=== PATIENT | female | born 1945 | race Caucasian/White ===

== ENCOUNTER 2020-05-07 06:23 | Day surgery (SDC) | payer MEDICARE ==
[2020-05-07] MEDS ORDERED: Sodium Chloride 0.9% 10 ML Syringe FLUSH PRN (07:00)
[2020-05-07 08:08] VITALS: BP 165/96; PULSE 70
--- NOTE | 2020-05-07 09:31 | OR ---
DATE OF PROCEDURE: 05/07/2020 SURGEON: Casie Zepeda MD POSTOPERATIVE CARE: Postoperative care will be provided mainly at the [address] [place] [address] [facility] in conjunction with [facility]. PREOPERATIVE DIAGNOSIS: Cataract, right eye. POSTOPERATIVE DIAGNOSIS: Cataract, right eye. PROCEDURE: Phacoemulsification with intraocular lens placement, right eye. ANESTHESIA: Topical and intracameral. ESTIMATED BLOOD LOSS: Minimal. COMPLICATIONS: None. PATHOLOGY SPECIMENS: None. SURGICAL FINDINGS: None. INDICATION FOR PROCEDURE: The patient is a 74-year-old female with history of a visually significant cataract in the right eye, which interfered with activities of daily living. This consisted of a nuclear sclerosis cataract. Following careful discussion of the risks, benefits and alternatives to cataract extraction with intraocular lens placement including blindness and , the patient elected to proceed, and informed, written consent was obtained prior to the procedure. DESCRIPTION OF THE PROCEDURE: The patient was previously identified, and a oscar placed above the right eye. All sources, including the patient, indicated that the right eye was the correct eye. The patient was subsequently taken to the operating room where standard monitors were applied. The patient was then prepped and draped in the usual sterile fashion for ophthalmic surgery. Attention was first directed at the 12 o'clock position where a paracentesis port was fashioned. Shugar solution followed by Viscoat was instilled into the eye. Attention was then directed to the 8:30 position where a triplanar incision was made in a near-clear manner using a keratome. A continuous capsulorrhexis was then made using a combination of the cystotome and Utrata forceps. Hydrodissection was achieved using a balanced salt solution, and the lens rotated nicely. Phacoemulsification was then done using a modified botrbx-xix-bdbhdoh technique without complication. Phaco time was 10.11 CDE. The remaining cortex was removed using the irrigation/aspiration handpiece. Provisc was then instilled into the eye. A Technis lens, model DCB00, at 23.0 diopters was then placed in the capsular bag using an [place] injector. The remaining viscoelastic was removed using the irrigation/aspiration forceps. All wounds were then checked and found to be watertight. The lid speculum and drapes were removed. Maxitrol ointment was placed in the patient's right eye, and the eye was shielded. The patient tolerated the procedure well. The patient was instructed to follow up tomorrow. All needle and sponge counts were correct at the end of the procedure. Casie Zepeda MD /[id number]
== END 2020-05-07 08:31 | disposition home or self-care (01) ==
LOC: JP.SDS 06:23
PROVIDERS: ATTEND Ophthalmology
DX: H25.11 Age-related nuclear cataract, right eye (principal); I10 Essential (primary) hypertension; Z91.040 Latex allergy status
CPT/HCPCS: 66984; V2632

== ENCOUNTER 2020-05-21 06:47 | Day surgery (SDC) | payer MEDICARE ==
[2020-05-21] MEDS: Sodium Chloride 0.9% 10 ML Syringe FLUSH PRN (07:22)
[2020-05-21 10:14] VITALS: BP 156/80; PULSE 72
--- NOTE | 2020-05-21 14:39 | OR ---
DATE OF PROCEDURE: 05/21/2020 SURGEON: Casie Zepeda MD POSTOPERATIVE CARE: Postoperative care will be provided mainly at the [address] [place] [address] [facility] in conjunction with [facility]. PREOPERATIVE DIAGNOSIS: Cataract, left eye. POSTOPERATIVE DIAGNOSIS: Cataract, left eye. PROCEDURE: Phacoemulsification with intraocular lens placement, left eye. ANESTHESIA: Topical and intracameral. ESTIMATED BLOOD LOSS: Minimal. COMPLICATIONS: None. PATHOLOGY SPECIMENS: None. SURGICAL FINDINGS: None. INDICATION FOR PROCEDURE: The patient is a 74-year-old female with history of a visually significant cataract in the left eye, which interfered with activities of daily living. This consisted of a nuclear sclerosis cataract. Following careful discussion of the risks, benefits and alternatives to cataract extraction with intraocular lens placement including blindness and , the patient elected to proceed, and informed, written consent was obtained prior to the procedure. DESCRIPTION OF THE PROCEDURE: The patient was previously identified, and a oscar placed above the left eye. All sources, including the patient, indicated that the left eye was the correct eye. The patient was subsequently taken to the operating room where standard monitors were applied. The patient was then prepped and draped in the usual sterile fashion for ophthalmic surgery. Attention was first directed at the 12 o'clock position where a paracentesis port was fashioned. Shugar solution followed by Viscoat was instilled into the eye. Attention was then directed to the 8:30 position where a triplanar incision was made in a near-clear manner using a keratome. A continuous capsulorrhexis was then made using a combination of the cystotome and Utrata forceps. Hydrodissection was achieved using a balanced salt solution, and the lens rotated nicely. Phacoemulsification was then done using a modified bappvx-deo-alfdbpq technique without complication. Phaco time was 7.46 CDE. The remaining cortex was removed using the irrigation/aspiration handpiece. Provisc was then instilled into the eye. A Technis lens, model DCB00, at 22.5 Diopters was then placed in the capsular bag using an [place] injector. The remaining viscoelastic was removed using the irrigation/aspiration forceps. All wounds were then checked and found to be watertight. The lid speculum and drapes were removed. Maxitrol ointment was placed in the patient's left eye, and the eye was shielded. The patient tolerated the procedure well. The patient was instructed to follow up tomorrow. All needle and sponge counts were correct at the end of the procedure. There were no surgical findings. Casie Zepeda MD /[id number]
== END 2020-05-21 08:30 | disposition home or self-care (01) ==
LOC: JP.SDS 06:47
PROVIDERS: ATTEND Ophthalmology
DX: H25.12 Age-related nuclear cataract, left eye (principal); Z91.040 Latex allergy status
CPT/HCPCS: 66984; V2632

== ENCOUNTER 2024-03-04 07:16 | Day surgery (SDC) | payer MEDICARE ==
[2024-03-04] MEDS ORDERED: Midazolam 1 MG/ML 2 ML SDV ONE (07:22)
[2024-03-04] MEDS ORDERED: Propofol 200 MG/20 ML SDV ONE ×2 (07:22→10:01)
[2024-03-04] MEDS ORDERED: fentaNYL 100 MCG/2 ML SDV ONE (07:22)
[2024-03-04 07:43] LABS: HEMOGLOBIN 12.3 g/dL (11.2-15.5); MEAN CORPUSCULAR HEMOGLOBIN 29.1 pg (31.6-35.5); MEAN CORPUSCULAR HGB CONC 34.2 g/dL (31.6-35.5); MEAN CORPUSCULAR VOLUME 85.1 fL (81.4-99.0); RED BLOOD CELL COUNT 4.23 M/uL (3.77-5.24); WHITE BLOOD CELL COUNT,WBC 4.8 K/uL (3.2-11.0)
[2024-03-04] MEDS: Lactated Ringers 1,000 ML IV SCH (08:00)
[2024-03-04 08:05] LABS: A/G RATIO 0.8 (1.2-2.2); ALANINE AMINOTRANSFERASE,ALT 18 U/L (12-78); ALBUMIN 3.5 g/dL (3.4-5.0); ALKALINE PHOSPHATASE 96 U/L (46-116); ASPARTATE AMNIOTRANSFERASE,AST 17 U/L (15-37); BILIRUBIN TOTAL 0.4 mg/dL (0.2-1.0); BLOOD UREA NITROGEN,BUN 14 mg/dL (7-18); CALCIUM 9.1 mg/dL (8.5-10.1); CARBON DIOXIDE,CO2 29 mmol/L (21-32); CHLORIDE,CL 98 mmol/L (100-108); CREATININE 0.7 mg/dL (0.6-1.0); EST CRCL DRUG DOSING (CG) 63.01 mL/min; ESTIMATED GFR 89 mL/min (>60); GLUCOSE RANDOM 84 mg/dL (74-106); POTASSIUM,K 3.6 mmol/L (3.6-5.2); PROTEIN TOTAL,TP 7.9 g/dL (6.4-8.2); SODIUM,NA 135 mmol/L (140-148)
[2024-03-04 08:07] LABS: ANION GAP 11.6 mmol/L (5.0-14.0)
[2024-03-04] MEDS: Nozin Nasal Sanitizer NASBOTH SCH ×2 (08:34→21:03)
[2024-03-04] MEDS: ceFAZolin 2 GM in Premix Bag 1 BAG IV ONE (08:50)
[2024-03-04] MEDS: Tranexamic Acid 770 MG in Sodium Chloride 0.9% 50 ML IV ONE (09:20)
[2024-03-04] MEDS: Bupivacaine 0.5% 50 ML MDV ONE (09:48)
[2024-03-04] MEDS ORDERED: Morphine 2 MG/ML SYRINGE IVPUSH PRN (11:54)
[2024-03-04] MEDS ORDERED: Magnesium Hydroxide 400 MG/5 ML Susp 30 ML Cup PO PRN (11:54)
[2024-03-04] MEDS ORDERED: Ondansetron 4 MG Tab.DIS PO PRN (11:54)
[2024-03-04] MEDS ORDERED: oxyCODONE 5 MG Tab PO PRN ×2 (12:08)
[2024-03-04] MEDS: Acetaminophen 500 MG Tab PO SCH (12:36)
[2024-03-04] MEDS: Ketorolac 15 MG/ML SDV IVPUSH SCH (12:37)
[2024-03-04] MEDS: traMADol 50 MG Tab PO PRN (13:21)
[2024-03-04] MEDS: Metoprolol Tartrate 50 MG Tab PO ONE (14:33)
[2024-03-04] MEDS: Levothyroxine 100 MCG Tab PO SCH (14:33)
[2024-03-04] MEDS: Hydrochlorothiazide/Triamterene 25-37.5 Tab PO ONE (14:33)
[2024-03-04] MEDS: Sodium Chloride 0.9% 1,000 ML IV SCH (16:22)
[2024-03-04] MEDS: ceFAZolin 1 GM in Premix Bag 1 BAG IV SCH (16:23)
[2024-03-04] MEDS ORDERED: Gabapentin 300 MG Cap PO SCH (21:00)
[2024-03-04] MEDS: Docusate Sodium 100 MG Cap PO SCH (21:03)
[2024-03-04] MEDS: Aspirin 81 MG Tab.EC PO SCH (21:04)
[2024-03-05] MEDS: Levothyroxine 100 MCG Tab PO SCH (07:50)
[2024-03-05] MEDS: Potassium Chloride 20 MEQ Tab.ER PO SCH (07:50)
[2024-03-05] MEDS: predniSONE 5 MG Tab PO SCH (07:50)
[2024-03-05] MEDS: Pravastatin 20 MG Tab PO SCH (08:27)
[2024-03-05] MEDS: Hydrochlorothiazide/Triamterene 25-37.5 Tab PO SCH (08:28)
[2024-03-05] MEDS: Metoprolol Tartrate 50 MG Tab PO SCH (08:34)
[2024-03-05 11:42] VITALS: BP 152/80; PULSE 59
== END 2024-03-05 16:38 | disposition home or self-care (01) ==
LOC: JP.SDS 07:16 → JP.MS 11:45 → JP.SDS 03-05 16:38
PROVIDERS: ATTEND Specialist
DX: M16.11 Unilateral primary osteoarthritis, right hip (principal); I10 Essential (primary) hypertension; K21.9 Gastro-esophageal reflux disease without esophagitis; E03.9 Hypothyroidism, unspecified; Z79.899 Other long term (current) drug therapy; Z91.040 Latex allergy status
CPT/HCPCS: 01214; 27130; 36415; 72170; 80053; 85027; 93005; 93010; 97110; 97116; 97161; 97165; 97535; A9270; C1713; C1776; J0665; J0689; J0690; J1885; J2250; J2704; J3010; J3490; J7030; J7120; J7512